=== PATIENT | female | born 1990 | race Caucasian/White ===

== ENCOUNTER 2016-06-03 15:25 | Emergency (ER) | payer MEDICAID, OTHER ==
[~2016-06-03] VITALS: Ht 170.2 cm; Wt 68.5 kg
[~2016-06-03 15:25] MED LIST: ACET500C5 PO; FERR325C PO; PRENAT PO
[2016-06-03 16:14] VITALS: Ht 170.2 cm; Wt 68.5 kg
--- NOTE | 2016-06-03 21:04 | ERD ---
ER Documentation Chief Complaint Date/Time DATE: 06/03/16 TIME: 21:02 Chief Complaint CWP WHEN COUGHING X 3 DAYS HPI 26-year-old female complaining of right-sided chest pain 2 days. Has pain with coughing. Describes pain as a soreness. She has cough for 2-3 weeks, cough is getting better. Patient has history of related CHF, preeclampsia with seizure shortly in February 2016. Denies fever or chills. Denies shortness of breath. Denies ankle edema. ROS All systems reviewed and are negative except as per history of present illness. Medications Home Meds Active Scripts Ibuprofen* (Motrin*) 600 Mg Tab, 600 MG PO Q6H Y for PAIN AND OR ELEVATED TEMP, #30 TAB Prov:QI SONG. [employer] 06/03/16 Acetaminophen* (Tylophen*) 500 Mg Capsule, 1 CAP PO Q6H Y for PAIN AND OR ELEVATED TEMP, #20 CAP Prov:BETH PENNY PAGrant 02/24/16 Reported Medications Ferrous Sulfate (Iron) 325 Mg Capsule.er, 325 MG PO BID, CAP 01/03/16 Multivit/Min/Fol Ac/Iron/Pren* ( S*) 1 Tab Tab, 1 TAB PO DAILY, TAB 01/03/16 Allergies Allergies: Coded Allergies: No Known Drug Allergies (Verified Allergy, Unknown, 03/02/16) PMhx/Soc Medical and Surgical Hx: pt denies Medical Hx, pt denies Surgical Hx History of Surgery: No Anesthesia Reaction: No Hx Neurological Disorder: No Hx Respiratory Disorders: No Hx Cardiac Disorders: No Hx Psychiatric Problems: No Hx Miscellaneous Medical Probl: No Hx Alcohol Use: No Hx Substance Use: No Hx Tobacco Use: No Smoking Status: Never smoker Physical Exam Vitals Vital Signs Date Time Temp Pulse Resp B/P Pulse Ox O2 Delivery O2 Flow Rate FiO2 06/03/16 16:14 97.6 67 18 98/56 98 Physical Exam General impression: Well-developed, well-nourished. Alert, oriented, in no acute distress Head: Normocephalic, atraumatic. Neck: Supple, nontender. No lymphanopathy. No nuchal rigidity. Respiration: Normal respiratory effort. Lungs clear to auscultate bilaterally. No wheezes, rales or rhonchi. Cardiovascular: Regular rate and rhythm. No murmurs or extra heart sounds. No chest wall tenderness to palpation. Abdomen: Abdomen normal to inspection. Nontender. No masses or organomegaly. Bowel sounds normal. Neuro: Mental status normal, speech normal. [employer] grossly intact. Skin: Normal turgor. No rash or lesions. Psych: Normal mood and affect. Procedures/MDM EKG: Normal sinus rhythm, normal axis. Poor R-wave progression. No ST segment elevation or depression. No ectopic beats. No QT prolongation. No other EKG abnormalities. EKG read by Dr. Johnston. Chest x-ray is negative, no evidence of acute cardiopulmonary disease. It is uncertain the cause of patient's chest pain. Low suspicion for acute coronary syndrome, aortic dissection, pneumonia, pneumothorax, or PE. Patient appears well, stable for discharge and outpatient management. Medical decision making shared with patient and family. Education provided to patient and family. Patient and family expressed understanding of the plan. Medications on discharge: Ibuprofen. Follow-up: Primary care provider in 2-3 days or return to ED if worse. QI SONG NP Jun 03, 2016 21:04
--- NOTE | 2016-06-03 22:13 | RADRPT ---
PROCEDURE: CHEST - 1 VIEW CLINICAL INDICATION: 26-year-old female with chest pain and cough. TECHNIQUE: A single frontal AP semi-erect view of the chest was performed portably. The images we re reviewed on a PACS workstation. COMPARISON: Chest x-ray March 01, 2016. FINDINGS: The cardiomediastinal silhouette has a normal appearance. There is no evidence for an infiltrate. T he pulmonary vascularity is within normal limits. There is no evidence for pneumothorax or pneumomed iastinum. The osseous structures are intact. IMPRESSION: No evidence for active cardiopulmonary disease. .Hilario Gupta MD, MD Date Time Electronically viewed and signed by .Hilario Gupta MD, on 06/03/2016 22:12 .M/
[2016-06-03] MEDS ORDERED: IBUP-1542 PO (22:31)
== END 2016-06-03 22:53 | disposition home or self-care (01) ==
LOC: FTE 15:25
DX: R07.89 Other chest pain (principal)
CPT/HCPCS: 71010; 93005; Z7502